=== PATIENT | male | born 1990 | race Caucasian/White ===

== ENCOUNTER 2016-11-01 17:26 | Emergency (ER) | payer OTHER ==
[~2016-11-01] VITALS: Ht 170.2 cm; Wt 79.6 kg
[2016-11-01] MEDS ORDERED: SEROQUEL100 MG PO (17:56)
[2016-11-01] MEDS ORDERED: VISTARIL25 MG PO (17:56)
[2016-11-01] MEDS ORDERED: WELLBUTRIN XL150 MG PO (17:56)
[2016-11-01] MEDS ORDERED: WELLBUTRIN SR150 MG PO (18:14)
[2016-11-01 18:40] VITALS: BP 121/72
== END 2016-11-01 18:41 | disposition home or self-care (01) ==
LOC: EME 17:26
DX: F32.9 Major depressive disorder, single episode, unspecified (principal); Z76.0 Encounter for issue of repeat prescription
CPT/HCPCS: 99281; 99283

== ENCOUNTER 2016-11-04 21:02 | Emergency (ER) | payer OTHER ==
[~2016-11-04] VITALS: Ht 170.2 cm; Wt 79.6 kg
[~2016-11-04 21:02] MED LIST: SEROQUEL100 MG PO; VISTARIL25 MG PO; WELLBUTRIN SR150 MG PO; WELLBUTRIN XL150 MG PO
[2016-11-04 22:56] LABS: BASOPHIL COUNT 0.1 K/uL (0-0.1); EOSINOPHIL (%) 10.5 % (0-5); HEMATOCRIT 41.2 % (38.0-50.0); IMMATURE GRANULOCYTE (%) 0.3 % (0.0-0.7); INSTRUMENT ABS NEUTROPHIL CT 4.3 K/uL; LYMPHOCYTE COUNT 3.1 K/uL (1.0-2.8); MCH 26.4 PG (29.0-34.0); MCHC 32.3 G/DL (30.0-36.0); MCV 81.9 FL (86-99); MEAN PLAT.VOLUME 9.5 uM^3 (9.0-12.4); MONOCYTE (%) 7.5 % (3-12); MONOCYTE COUNT 0.7 K/uL (0-0.8); NEUTROPHIL (%) 46.8 % (45-76); NEUTROPHIL COUNT 4.3 K/uL (1.8-6.4); PLATELET COUNT 222 K/uL (156-360); RBC DIS.WIDTH-CV 11.9 % (11.8-14.6); RBC DIS.WIDTH-SD 35.8 % (39-53); RED BLOOD COUNT 5.03 M/uL (4.00-5.50); WHITE BLOOD COUNT 9.2 K/uL (4.1-10.2)
[2016-11-04 23:12] LABS: CHLORIDE 104 mEq/L (99-109); POTASSIUM 3.5 mEq/L (3.7-5.4); SODIUM 137 mEq/L (136-147)
[2016-11-04 23:14] LABS: GLUCOSE 107 mg/dL (70-99)
[2016-11-04 23:15] LABS: ANION GAP 11 MEQ/L (2-14)
[2016-11-04 23:16] LABS: TOTAL BILIRUBIN 0.7 mg/dL (0.0-1.0)
[2016-11-04 23:18] LABS: ALKALINE PHOSPHATASE 76 IU/L (3-129); GFR ESTIMATE (CALCULATED) > 59 mL/min/
[2016-11-04 23:19] LABS: UREA NITROGEN (BUN) 12 mg/dL (9-23)
[2016-11-04 23:21] LABS: CREATINE KINASE 295 IU/L (1-294); TOTAL CK 295 IU/L (1-294)
[2016-11-04 23:29] LABS: CK-MB 2.8 ng/mL (0.0-4.9)
[2016-11-05 01:05] VITALS: BP 131/99
== END 2016-11-05 01:24 | disposition home or self-care (01) ==
LOC: EME 21:02
PROVIDERS: Emergency Medicine
DX: G40.909 Epilepsy, unspecified, not intractable, without status epilepticus (principal); F19.21 Other psychoactive substance dependence, in remission; M54.9 Dorsalgia, unspecified; R51 Headache; F17.200 Nicotine dependence, unspecified, uncomplicated
CPT/HCPCS: 70450; 80053; 82550; 82553; 85025; 93005; 99281; 99283